=== PATIENT | female | born 1935 | race Caucasian/White ===

== ENCOUNTER 2016-09-13 10:50 | Inpatient (IN) | payer OTHER ==
[2016-09-13] MEDS ORDERED: NS 1,000 ML IV ONE (11:19)
--- NOTE | 2016-09-13 11:41 | EDPHY ---
H & P Stated Complaint: Diarrhea Source: Patient, Family - Personal History Current Tetanus/Diphtheria Vaccine: Unsure Current Tetanus Diphtheria and Acellular Pertussis (TDAP): Unsure - Medical/Surgical History Hx Asthma: No Hx Chronic Respiratory Disease: No Hx Diabetes: No Hx Cardiac Disease: Yes Hx Renal Disease: No Hx Cirrhosis: No Hx Alcoholism: No Hx HIV/AIDS: No Hx Splenectomy or Spleen Trauma: No Other PMH: recurrent UTIs. HTN, hyperlipdemia,. stroke. abdominal sx- stomach. Noro virus and c-diff, 3 bladder sx's, carotid sx - Family History Significant Family History: Heart disease - Social History Smoking Status: Former smoker Alcohol Use: Rarely Drug Use: None Time Seen by Provider: 09/13/16 11:20 HPI/ROS: HPI:80-year-old female presents to emergency department with chief concern explosive diarrhea. Developed mild abdominal cramping at 11:30 p.m. last night , and watery explosive diarrhea this morning. Finished a course of antibiotic for dental procedure approximately a week ago. Has a history of C difficile a year ago. Also reports left arm ache that onset this morning associated with shortness of breath. reports mild dizziness. Reports hot/cold, clammy feeling. Reports urinary burning and frequency. Apparently diagnosed with a UTI by primary care Dr. Major and had not yet picked up her antibiotic.Denies fever, myalgias, Abdominal pain, nausea, vomiting, rash, back or flank pain.No personal history of coronary artery disease. Significant family history of coronary artery disease. Never smoker. ROS:10 point review of systems is negative other than as stated in HPI (Shahla Prabhakar) - Physical Exam Exam: Vital signs stable, reviewed by me General: Awake, alert, calm, cooperative. No acute distress. Head: Normalocephalic. Atraumatic. EENT: PERRLA. EOMI. No pallor or injection. Anicteric. No nystagmus. No injection. Neck: Supple, nontender. No lymphadenopathy. Full range of motion. no JVD. No carotid bruit. Respiratory: Breathing unlabored. Breath sounds with fine rales right lower lobe. CV: Chest nontender, atraumatic. Heart rate regular. No murmur, distal pulses 2+ bilaterally. Brisk cap refill all extremities. GI: Abdomen soft, mild diffuse left-sided tenderness to deep palpation. no guarding. No rebound. Bowel sounds normoactive and positive x4 quadrants. : No CVA or flank tenderness. Neuro: Alert. Oriented x 3. Speech clear. Nonfocal cranial nerves throughout. Sensation intact all extremities. Skin: Skin warm, dry, intact. Skin turgor normal. Extremities: Full range of motion in all 4 extremities. Strength 5+ all extremities. (Brown,Shahla K) Constitutional: Initial Vital Signs Temperature (C) 36.4 C 09/13/16 10:50 Heart Rate 76 09/13/16 10:50 Respiratory Rate 16 09/13/16 10:50 Blood Pressure 158/85 H 09/13/16 10:50 O2 Sat (%) 99 09/13/16 10:50 O2 Delivery Mode Room Air Allergies/Adverse Reactions: clindamycin Allergy (Severe, Verified 12/22/15 12:03) Unknown erythromycin lactobionate [From Erythrocin] Allergy (Severe, Verified 12/22/15 12:03) Diarrhea azithromycin Allergy (Intermediate, Verified 12/22/15 12:03) Diarrhea cefaclor [Cefaclor] Allergy (Intermediate, Verified 12/22/15 12:03) Unknown ciprofloxacin Allergy (Intermediate, Verified 12/22/15 12:03) Unknown Penicillins Allergy (Intermediate, Verified 12/22/15 12:03) Rash valsartan Allergy (Intermediate, Verified 12/22/15 12:03) Unknown nitrofurantoin [From Macrobid] Allergy (Verified 12/22/15 12:03) Abdominal Pain nitrofurantoin macrocrystalline [From Macrobid] Allergy (Verified 12/22/15 12:03 ) Other-Enter Comments Home Medications: Medication Instructions Recorded Atorvastatin Calcium [Lipitor 10 10 mg PO HS 09/13/16 mg (*)] Cholecalciferol Vit D3 [Vitamin D3 2,000 units PO DAILY 09/13/16 (*)] Clopidogrel Bisulfate [Plavix (*)] 75 mg PO DAILY 09/13/16 Diclofenac Sodium [Voltaren Gel 2 gm TP QID 09/13/16 (*)] Herbals/Supplements -Info Only 1 ea PO DAILY 09/13/16 Metoprolol Succinate Xr [Toprol Xl 75 mg PO DAILY 09/13/16 50 mg (*)] Omeprazole [Prilosec 20 mg] 20 mg PO DAILY 09/13/16 amLODIPine BESYLATE [Amlodipine 5 mg PO DAILY 09/13/16 Besylate] Vancomycin [Vancocin Oral Liquid] 125 mg PO QID #32 dose 09/15/16 levOFLOXACIN [levAQUIN (*)] 500 mg PO DAILY #2 tab 09/15/16 Medical Decision Making ED Course/Re-evaluation: 1135: 80-year-old female brought into ED by EMS with chief concern watery diarrhea. Also reports shortness of breath, dizziness, left arm pain. Labs, urine, stool studies pending. EKG pending. Vitals are stable. Patient is in no acute distress presently. 1412: Patient remained stable. Continues to feel lightheaded. Shortness of breath and left arm discomfort have resolved. EKG shows sinus rhythm, rate 74, LVH, possible progression of ST depression in I, V3, V4. white count 9480. CO2 21. Glucose 108. Troponin negative. BNP 211. urine culture from September 10 significant for E coli UTI. Awaiting stool studies to determine if patient has C diff. Chest x-ray negative for consolidation. 1425: Will admit patient to the hospitalist service for serial troponin, rule out acute coronary syndrome, and await stool study to rule out C diff. Patient needs to be treated for UTI pending C diff studies.Report given to Merlin Coleman MD (Shahla Prabhakar) Differential Diagnosis: Differential diagnosis includes but is not limited to C difficile, norovirus, acute coronary syndrome, pneumonia, CHF (Shahla Prabhakar) Other Provider: The patient wasevaluatedand managed by themidlevel provider. Idiscussed the patient's presentation and course with thephysicianassistantor nurse practitionerand agree with theevaluation. My co-signature indicates that I have reviewed this chart and I agree with the findings and plan of care as documented. I am the secondary supervisingphysician. Patient with no history of fever. No tachycadia, tachypnea, elevated WBC, no evidence of sepsis. (Aisha Moura) - Data Points Laboratory Results: Laboratory Results 09/14/16 04:30 09/14/16 04:30 Medications Given: Discontinued Medications Aspirin Buffered (Aspirin Ec) 325 mg PO EDNOW ONE Stop: 09/13/16 14:40 Last Admin: 09/13/16 17:50 Dose: Not Given Aspirin Buffered (Aspirin Ec) 325 mg PO ONCE ONE Stop: 09/13/16 17:31 Last Admin: 09/13/16 18:29 Dose: 325 mg Fentanyl (Sublimaze) 50 mcg IVP EDNOW ONE Stop: 09/13/16 14:01 Last Admin: 09/13/16 15:17 Dose: Not Given Sodium Chloride (Ns) 1,000 mls @ 0 mls/hr IV ONCE ONE PRN Reason: Wide Open Stop: 09/13/16 11:20 Last Admin: 09/13/16 12:02 Dose: 1,000 mls Miscellaneous Medication (Diclofenac Sodium [Voltaren Gel (*)]) 0 gm TP QID RAMIREZ Stop: 03/12/17 15:59 Last Admin: 09/13/16 21:19 Dose: 1 ilya Departure - Departure Disposition: [facility] Acute Clinical Impression: Acute electrocardiography changes UTI (urinary tract infection) Qualifiers: Urinary tract infection type: site unspecified Hematuria presence: without hematuria Qualified Code(s): N39.0 - Urinary tract infection, site not specified Diarrhea Qualifiers: Diarrhea type: unspecified type Qualified Code(s): R19.7 - Diarrhea, unspecified Condition: Good
--- NOTE | 2016-09-13 11:48 | CPEKG ---
Heart Rate: 74 RR Interval: 811 P-R Interval: 152 QRSD Interval: 92 QT Interval: 432 QTC Interval: 480 P Kenner: 37 QRS Kenner: -8 T Wave Kenner: 18 EKG Severity - ABNORMAL ECG - EKG Impression: SINUS RHYTHM EKG Impression: LEFT VENTRICULAR HYPERTROPHY EKG Impression: PROBABLE INFERIOR INFARCT, AGE INDETERMINATE EKG Impression: NO SIG CHANGE COMPARED WITH 22 DEC 2015 Electronically Signed By: Shahla Taylor 17-Sep-2016 13:50:20
[2016-09-13 11:56] LABS: % IMMATURE GRANULYOCYTES 0.4 % (0.0-1.1); ABSOLUTE IMMATURE GRANULOCYTES 0.04 10^3/uL (0.00-0.10); ADD DIFF? NO; ADD MORPH? NO; ADD SCAN? NO; ATYPICAL LYMPHOCYTE FLAG 0 (0-99); FRAGMENT RBC FLAG 0 (0-99); HEMATOCRIT 38.7 % (38.0-47.0); HEMOGLOBIN 12.8 g/dL (12.6-16.3); LEFT SHIFT FLG 0 (0-99); LIPEMIA HEMOLYSIS FLAG 80 (0-99); MEAN CELL HEMOGLOBIN 29.8 pg (27.9-34.1); MEAN CELL HEMOGLOBIN CONCENTR. 33.1 g/dL (32.4-36.7); MEAN PLATELET VOLUME 9.8 fL (8.7-11.7); PLATELET CLUMPS FLAG 0 (0-99); PLATELET COUNT 363 10^3/uL (150-400); RED CELL DISTRIBUTION WIDTH 13.9 % (11.5-15.2)
[2016-09-13 12:15] LABS: ANION GAP 13 mEq/L (8-16); CALCIUM 9.7 mg/dL (8.5-10.4); CARBON DIOXIDE 21 mEq/l (22-31); CHLORIDE 109 mEq/L (97-110); CREATININE 0.6 mg/dL (0.6-1.0); GLOMERULAR FILTRATION RATE > 60; GLUCOSE 108 mg/dL (70-100); MAGNESIUM 1.9 mg/dL (1.6-2.3); POTASSIUM 3.9 mEq/L (3.5-5.2); SODIUM 143 mEq/L (134-144)
[2016-09-13 12:27] LABS: TROPONIN I < 0.012 ng/mL (0-0.034)
[2016-09-13] MEDS ORDERED: fentaNYL 100 MCG/2 ML INJ IVP ONE (14:00)
[2016-09-13] MEDS ORDERED: ONDANSETRON 4 MG/2 ML VIAL IVP PRN (14:39)
[2016-09-13] MEDS ORDERED: ASPIRIN EC 325 MG TAB PO ONE ×2 (14:39→17:30)
[2016-09-13] MEDS ORDERED: ONDANSETRON DISINTEGRATING 4 MG TAB PO PRN (14:39)
[2016-09-13 14:59] LABS: ALBUMIN 4.4 g/dL (3.5-5.0); BILIRUBIN,TOTAL 0.5 mg/dL (0.1-1.4); BILIRUBIN-CONJUGATED 0.4 mg/dL (0.0-0.5); BILIRUBIN-UNCONJUGATED 0.1 mg/dL (0.0-1.1); TOTAL PROTEIN 7.4 g/dL (6.3-8.2)
--- NOTE | 2016-09-13 15:47 | GHP ---
[f rep st] HISTORY AND PHYSICAL DATE OF ADMISSION: 09/13/2016 CHIEF COMPLAINT: Diarrhea. HISTORY OF PRESENT ILLNESS: This is an 80-year-old female who presents with 2 episodes of explosive , watery diarrhea this morning. She had antibiotics about 2 weeks ago for a dental procedure. Sinc e then, she has been doing fine; however, she had this diarrhea this morning, not associated with ab dominal pain, no nausea, or vomiting. 2 days ago she had symptoms of a urinary tract infection including frequency with no dysuria. Urine culture at that time was ordered which was shown to be positive for E coli. An antibiotic had been called in for her today; however, she was unsure of what that antibiotic was. She also complains of some left arm ache. This has come and gone for some time. It was worse today and more persistent than normal, not really exertional. She has a good functional status overall. She has a significant family history of coronary artery disease, however, no personal history. She has an echocardiogram. The ache has currently resolved when I am seeing her. PAST MEDICAL/SURGICAL HISTORY: 1. History of C diff diarrhea. 2. History of a CVA with residual left-sided weakness about 5 years ago. 3. Hypertension. 4. Peptic ulcer disease. 5. JASBIR aneurysm. 6. Urinary tract infections. 7. Hyperlipidemia. MEDICATIONS: Please see medication reconciliation. ALLERGIES: Clindamycin, erythromycin, azithromycin, Ceclor, ciprofloxacin, penicillin, valsartan, M acrobid. FAMILY HISTORY: Notable for coronary artery disease. SOCIAL HISTORY: She lives independently [place] an apartment [place] town. REVIEW OF SYSTEMS: 10-point review of systems is conducted and is negative except per HPI. PHYSICAL EXAMINATION: VITAL SIGNS: Blood pressure 158/85, heart rate 76, respiration rate 16, satu rating at 99% on room air. Temperature 36.4. GENERAL: The patient is a pleasant, elderly female w ho was lying in bed, comfortable, in no acute distress. HEENT: Normocephalic, atraumatic. CARDIOV ASCULAR: Regular rate and rhythm. No murmurs, rubs, or gallops. No elevated JVD. No lower extrem ity edema. PULMONARY: Lungs clear to auscultation bilaterally. ABDOMEN: Soft, nontender, nondist ended. SKIN: No rash. : No Barrientos. NEUROLOGIC: Alert and oriented x3. She is moving all extr emities. PSYCHIATRIC: Normal mood and affect. LABS: CBC is relatively unremarkable. LFTs are normal. Basic metabolic panel is not terribly omer rkable. DATA: 1. I discussed this with Shahla Prabhakar in the ED. Will admit to telemetry. 2. I personally viewed and interpreted chest x-ray. This shows normal-sized heart. There is no pn eumonia. 3. EKG, which I personally reviewed and interpreted and compared to old, shows some slightly increa sed ST depressions in leads I and L. Otherwise she has Q-waves in III and F. 4. I reviewed her old echocardiogram from November of 2015 which showed normal EF with no wall motion abnormalities, mildly elevated RVSP with 35. IMPRESSION/PLAN: This is an 80-year-old female who presents with diarrhea and left arm discomfort. 1. Diarrhea: She has not yet provided a stool sample here. Will send this for Clostridium diffici le, as well as other GI pathogens. She is stable. I will not empirically treat her for Clostridium difficile diarrhea. 2. Left arm discomfort: Given her abnormal EKG with inferior Q-waves as well as slightly worsening ST depressions in I and L, I will trend troponins as well as monitor on telemetry. I have given he r an aspirin. Will check a Lexiscan tomorrow if troponins remain negative. 3. Urinary tract infection: She has multiple antibiotic allergies. She has a fluoroquinolone resi stant Escherichia coli in her urine. I do see that she has received Rocephin here in the past. I w ill order this for her now. Will monitor her for an allergic reaction. 4. History of a cerebrovascular accident: Will continue her neurologic medications. 5. History of hypertension. 6. Code status is do not resuscitate. /[id number]/MODL
[2016-09-13] MEDS ORDERED: DICLOFENAC SODIUM TP SCH (16:00)
[2016-09-13 16:34] LABS: COLOR YELLOW; LEUKOCYTE ESTERASE,URINE NEGATIVE (NEGATIVE); NITRITE,URINE POSITIVE (NEGATIVE)
[2016-09-13 16:59] LABS: BACTERIA TRACE /hpf (NONE SEEN); MUCUS TRACE /lpf (NONE-1+)
[2016-09-13] MEDS: DICLOFENAC SODIUM TP SCH ×2 (17:24→21:19)
[2016-09-13] MEDS: ATORVASTATIN CALCIUM 10 MG TAB PO SCH (21:19)
[2016-09-13] MEDS: VANCOMYCIN 125 MG/2.5 ML UDL PO SCH (22:42)
[2016-09-14] MEDS: ACETAMINOPHEN 325 MG TAB PO PRN ×4 (04:11→22:38)
[2016-09-14 04:56] LABS: % IMMATURE GRANULYOCYTES 0.1 % (0.0-1.1); ABSOLUTE IMMATURE GRANULOCYTES 0.01 10^3/uL (0.00-0.10); ADD DIFF? NO; ADD MORPH? NO; ADD SCAN? NO; ATYPICAL LYMPHOCYTE FLAG 20 (0-99); FRAGMENT RBC FLAG 0 (0-99); HEMATOCRIT 35.6 % (38.0-47.0); HEMOGLOBIN 11.7 g/dL (12.6-16.3); LEFT SHIFT FLG 0 (0-99); LIPEMIA HEMOLYSIS FLAG 80 (0-99); MEAN CELL HEMOGLOBIN 30.1 pg (27.9-34.1); MEAN CELL HEMOGLOBIN CONCENTR. 32.9 g/dL (32.4-36.7); MEAN CELL VOLUME 91.5 fL (81.5-99.8); MEAN PLATELET VOLUME 9.8 fL (8.7-11.7); PLATELET CLUMPS FLAG 0 (0-99); PLATELET COUNT 329 10^3/uL (150-400); RED BLOOD CELL COUNT 3.89 10^6/uL (4.18-5.33)
[2016-09-14 05:10] LABS: ANION GAP 9 mEq/L (8-16); CALCIUM 9.1 mg/dL (8.5-10.4); CARBON DIOXIDE 23 mEq/l (22-31); CHLORIDE 110 mEq/L (97-110); CREATININE 0.5 mg/dL (0.6-1.0); GLOMERULAR FILTRATION RATE > 60; GLUCOSE 94 mg/dL (70-100); POTASSIUM 3.9 mEq/L (3.5-5.2); SODIUM 142 mEq/L (134-144)
[2016-09-14] MEDS: VANCOMYCIN 125 MG/2.5 ML UDL PO SCH ×4 (06:34→20:48)
[2016-09-14] MEDS: DICLOFENAC SODIUM TP SCH ×4 (07:32→20:48)
[2016-09-14] MEDS ORDERED: NON-FORMULARY NEW DRUG (Omeprazole [Prilosec 20 Mg] 20 MG) PO SCH (09:00)
[2016-09-14] MEDS ORDERED: REGADENOSON 0.4 MG/5 ML SYR IVP ONE (09:27)
[2016-09-14] MEDS: oxyCODONE IR 5 MG TAB PO PRN ×2 (10:35→22:39)
[2016-09-14] MEDS: CLOPIDOGREL BISULFATE 75 MG TAB PO SCH (10:38)
[2016-09-14] MEDS: PANTOPRAZOLE SODIUM 40 MG TAB PO SCH (10:38)
[2016-09-14] MEDS: METOPROLOL SUCCINATE XR 50 MG TAB PO SCH (12:47)
--- NOTE | 2016-09-14 14:23 | PDCARST ---
CAR Stress Test Results Type of Stress Test: Lexiscan stress test Indication: cp Description of Procedure: After informed consent was obtained, pt was established to ECG, blood pressure, HR and oximetry monitoring. STRESS EKG AND HEMODYNAMIC DATA. Resting heart rate: 69 BPM. Resting ECG: SR. Resting blood pressure: 136/74 mmHg. O2 saturation at rest: 96%. Peak heart rate: 101 BPM. Peak blood pressure: 140/80 mmHg. Arrhythmias: none. Symptoms: The patient experienced no typical symptoms of angina during stress or recovery. Stress/Infusion ECG: No change in rhythm with no significant ST/T wave changes. Stress/infusion O2 saturation: 96% Impression: Uneventful Lexiscan infusion Conclusion: Await nuclear images.
--- NOTE | 2016-09-14 18:45 | HOSPPROG ---
Hospitalist Progress Note Assessment/Plan: DIAGNOSES: -Left arm pain, resolved, uncertain etiology -Normal Lexiscan stress test with myocardial perfusion imaging -C difficile colitis with active diarrhea -Question of possible UTI diagnosed elsewhere but normal urinalysis here PLANS: -continue empiric antibiotic for possible UTI and will research her outpatient lab tests further -Oral vancomycin for C difficile colitis -potential discharge to home tomorrow if stable from the standpoint of her colitis SUBJECTIVE: Her left arm discomfort is resolved. She still having some loose stools but she is able to eat well No fever symptoms no abdominal pain OBJECTIVE Vitals reviewed: stable without fever Training Development Specialist, my review: sinus rhythm Exam: alert oriented skin warm dry color ok resps not labored lungs clear BSs heart regular abd soft nondistended nontender, bowel sounds present limbs warm, no edema iv site ok Objective: Vital Signs Temp Pulse Resp BP Pulse Ox 36.7 C 69 16 164/75 H 96 09/14/16 16:11 09/14/16 16:11 09/14/16 16:11 09/14/16 16:11 09/14/16 16:11 Microbiology 09/13/16 19:00 Gastrointestinal Tract Panel (PCR) - Final Stool Clostridium Difficile Detected Laboratory Results 09/14/16 04:30 09/14/16 04:30 09/13/16 09/14/16 09/15/16 06:59 06:59 06:59 Intake Total 1350 702 Output Total 1100 1200 Balance 250 -498 ICD10 Worksheet Patient Problems: Problems Problem Status Onset Acute electrocardiography changes Acute Diarrhea Acute UTI (urinary tract infection) Acute Cerebral infarction Active Essential hypertension Active Nonruptured cerebral aneurysm Active Acute gastroenteritis Acute Ataxia Acute C. difficile diarrhea Acute 09/14/15 Hypovolemia dehydration Acute Urinary tract infection Acute
[2016-09-14] MEDS: ATORVASTATIN CALCIUM 10 MG TAB PO SCH (20:47)
[2016-09-15] MEDS: ACETAMINOPHEN 325 MG TAB PO PRN ×2 (04:33→09:39)
[2016-09-15] MEDS: DICLOFENAC SODIUM TP SCH ×2 (04:34→12:26)
[2016-09-15] MEDS: VANCOMYCIN 125 MG/2.5 ML UDL PO SCH ×2 (06:58→12:25)
[2016-09-15 08:28] VITALS: BP 166/65; PULSE 54; RESP 22; TEMP 97.9; O2SAT 96
[2016-09-15] MEDS: CLOPIDOGREL BISULFATE 75 MG TAB PO SCH (09:39)
[2016-09-15] MEDS: METOPROLOL SUCCINATE XR 50 MG TAB PO SCH (09:40)
[2016-09-15] MEDS: PANTOPRAZOLE SODIUM 40 MG TAB PO SCH (09:40)
--- NOTE | 2016-09-15 10:14 | PDDCSUM ---
Discharge Summary Discharge Summary: DISCHARGE DIAGNOSES: -acute C difficile colitis, with no antecedent antibiotic therapy -left arm pain resolved, uncertain etiology -normal cardiac stress testing with no abnormalities on myocardial perfusion imaging -probable E coli urinary tract infection HOSPITAL COURSE SUMMARY: This patient presented to the hospital complaining of left arm discomfort and diarrhea. The left arm discomfort raise some suspicion for a possible anginal equivalent as it was intermittent and not associated with any identifiable local pathology in the arm itself. She was observed overnight and had rule out protocol showing no signs of myocardial ischemia or infarction. She underwent Lexiscan stress testing with perfusion imaging which showed no abnormalities. There is no heart failure and no arrhythmia no abnormal vital signs. She is felt to be a very low risk for cardiac events She did again have diarrhea with some crampy abdominal discomfort and on testing was identified as having positive C difficile. She is at this time started on oral vancomycin therapy which she will continue for a total 10 day course of therapy. She is warned of the potential for spreading this illness and will do good hand washing routines and will not prepare food for others. Additionally the patient noted that she had been seen in her primary care clinic last week with urinary frequency. Apparently a urine culture was done showing a pansensitive E coli. There was no dysuria or fever with this. Patient upon arrival here continued to have urinary frequency although a urinalysis was fairly unremarkable. It was uncertain whether she truly has a urinary infection or not between the symptoms and culture it was elected to treat her. She did receive some Rocephin for this E coli and will go home with a couple more days of Levaquin. She will follow up with her primary care physician to ensure that we have either eradicating the infection or that there is not some other problem causing this such as a non infectious cystitis. PENDING TEST RESULTS: None MEDICATION CHANGES: To complete a total 10 day course of oral vancomycin therapy 125 mg four times daily She will finish up with 2 days more of antibiotic for her urinary tract infection FOLLOW-UP PLAN: With her primary care physician next week Greater than 35 minutes bedside and care coordination time today
== END 2016-09-15 13:25 | disposition home or self-care (01) | DRG 372 ==
LOC: EDUNIT# → F2W 15:43 → OBSVTOIN 09-14 19:57
PROVIDERS: ADMIT Student in an Organized Health Care Education/Training Program; ATTEND Internal Medicine
DX: A04.7 Enterocolitis due to Clostridium difficile (principal); M79.602 Pain in left arm; N39.0 Urinary tract infection, site not specified; B96.20 Unspecified Escherichia coli [E. coli] as the cause of diseases classified elsewhere; I69.354 Hemiplegia and hemiparesis following cerebral infarction affecting left non-dominant side; I10 Essential (primary) hypertension; E78.5 Hyperlipidemia, unspecified; K27.9 Peptic ulcer, site unspecified, unspecified as acute or chronic, without hemorrhage or perforation; Z82.49 Family history of ischemic heart disease and other diseases of the circulatory system; Z66 Do not resuscitate
CPT/HCPCS: 97161-GP; 97166-GO; A9500; G0378; G8978-GP-CJ; G8979-GP-CI; G8987-GO-CI; G8988-GO-CI; G8989-GO-CI; J0696; J2785

== ENCOUNTER → 2017-03-08 | Outpatient (CLI) | payer OTHER | LOC: CIMAGING 15:14 | PROVIDERS: ATTEND Physician Assistant | DX: K59.00 Constipation, unspecified (principal); F98.1 Encopresis not due to a substance or known physiological condition | CPT/HCPCS: 74020-PO ==

== ENCOUNTER → 2018-08-18 | Outpatient (CLI) | payer OTHER | LOC: CIMAGING 11:06 | PROVIDERS: ATTEND Podiatrist | DX: L97.511 Non-pressure chronic ulcer of other part of right foot limited to breakdown of skin (principal); M79.89 Other specified soft tissue disorders | CPT/HCPCS: 73630-PO ==